=== PATIENT | female | born 1965 | race Asian ===

== ENCOUNTER 2016-09-15 00:47 | Inpatient (IN) | payer SELFPAY ==
[2016-09-15] MEDS ORDERED: ZOFRAN IV ONE ×2 (01:29→07:08)
[2016-09-15 01:58] LABS: Basophils % (Auto) 0.5 % (0.0-1.8); Eosinophils % (Auto) 0.3 % (0.0-4.3); Hematocrit 41.4 % (30.3-42.9); Hemoglobin 13.5 gm/dl (10.1-14.3); Mean Corpuscular HGB Conc 33 % (30-34); Mean Corpuscular Hemoglobin 30 pg (28-32); Mean Corpuscular Volume 93 fl (79-97); Platelet Count 201 K/mm3 (140-440); Red Blood Count 4.47 M/mm3 (3.65-5.03); Red Cell Distribution Width 14.2 % (13.2-15.2); White Blood Count 13.3 K/mm3 (4.5-11.0)
[2016-09-15 02:23] LABS: Albumin 4.2 g/dL (3.9-5); Albumin/Globulin Ratio 1.4 %; Alkaline Phosphatase 81 units/L (35-129); Blood Urea Nitrogen 10 mg/dL (7-17); Calcium 9.7 mg/dL (8.4-10.2); Carbon Dioxide 25 mmol/L (22-30); Glucose 111 mg/dL (65-100); Lipase 21 units/L (13-60); Sodium 140 mmol/L (137-145); Total Protein 7.3 g/dL (6.3-8.2)
[2016-09-15 02:28] LABS: Anion Gap 18 mmol/L
[2016-09-15 02:29] LABS: Alanine Aminotransferase 12 units/L (7-56)
[2016-09-15] MEDS ORDERED: ZOFRAN ONE ×2 (07:04→16:34)
--- NOTE | 2016-09-15 08:48 | Ultrasound Report ---
Pelvic and transvaginal sonography: History: Abdominal pain, . Findings: Uterus measures 6.2 x 2 x 3.2 cm. Endometrial thickness 18.1 mm. There is calcification noted within the endometrium. No intrauterine gestation. The cervix and vagina appears unremarkable. Right ovary 2.4 x 1.3 x 1.3 cm. No mass. Left ovary 2.7 x 1.3 x 1.6 cm. Cyst in the left ovary measures 0.7 cm. Impression: Thickened endometrium with calcification. No mass. No intrauterine gestation. Left ovarian cyst.
[2016-09-15] MEDS ORDERED: NACL ONE ×2 (10:25→11:49)
--- NOTE | 2016-09-15 10:35 | Emergency Department Report ---
ED Abdominal Pain HPI - General Chief Complaint: Abdominal Pain Stated Complaint: UPPER ABDOMINAL PAIN Time Seen by Provider: 09/15/16 09:34 Source: patient Mode of arrival: Ambulatory Limitations: No Limitations - History of Present Illness Initial Comments: Patient is a 51-year-old female with a history of breast cancer in remission for 2 years, migraines presents with one-week history of abdominal pain. Patient reports the abdominal pain is intermittent with instances of sharp pain in the upper abdominal region. Associated nausea and decreased appetite. Patient is noncompliant with breast cancer checkup. Currently has no PMD. Otherwise no headaches, chills, fever, vomiting, chest pain, shortness of breath , pelvic pain, pelvic discharge, back pain, dysuria, trauma, sick contacts, or travel MD Complaint: abdominal pain -: Gradual Severity scale (0 -10): 4 - Related Data Home Medications Medication Instructions Recorded Confirmed Last Taken No Known Home Medications [No 04/08/14 09/15/16 Unknown Reported Home Medications] Allergies Allergy/AdvReac Type Severity Reaction Status Date / Time No Known Allergies Allergy Unverified 04/08/14 16:11 ED Review of Systems ROS: Stated complaint: UPPER ABDOMINAL PAIN Other details as noted in HPI Comment: All other systems reviewed and negative ED Past Medical Hx - Past Medical History Previous Medical History?: Yes Hx of Cancer: Yes (Left Breast Cancer) Hx Headaches / Migraines: Yes (MIGRAINES) - Surgical History Hx Breast Surgery: Yes (LEFT BREAST BX 03-09-14) Additional Surgical History: port-a-cath right upper chest, - Social History Smoking Status: Current Every Day Smoker Substance Use Type: None - Medications Home Medications: Home Medications Medication Instructions Recorded Confirmed Last Taken Type No Known Home Medications [No 04/08/14 09/15/16 Unknown History Reported Home Medications] ED Physical Exam - General Limitations: No Limitations General appearance: alert, in no apparent distress - Head Head exam: Present: atraumatic, normocephalic - Eye Eye exam: Present: normal appearance - ENT ENT exam: Present: mucous membranes moist - Neck Neck exam: Present: normal inspection - Respiratory Respiratory exam: Present: normal lung sounds bilaterally. Absent: respiratory distress - Cardiovascular Cardiovascular Exam: Present: regular rate, normal rhythm. Absent: systolic murmur, diastolic murmur, rubs, gallop - GI/Abdominal GI/Abdominal exam: Present: soft, tenderness (RUQ and epigastrium), normal bowel sounds. Absent: distended, rebound, rigid - Extremities Exam Extremities exam: Present: normal inspection - Back Exam Back exam: Present: normal inspection - Neurological Exam Neurological exam: Present: alert, oriented X3 - Psychiatric Psychiatric exam: Present: normal affect, normal mood - Skin Skin exam: Present: warm, dry, intact, normal color. Absent: rash ED Course Vital Signs 09/15/16 09/15/16 09/15/16 01:15 06:23 07:00 Temperature 97.4 F L 98.2 F Pulse Rate 82 76 60 Respiratory 20 18 16 Rate Blood Pressure 144/81 141/72 Blood Pressure 144/81 112/61 [Left] O2 Sat by Pulse 100 100 100 Oximetry 09/15/16 11:10 Temperature Pulse Rate Respiratory 18 Rate Blood Pressure Blood Pressure [Left] O2 Sat by Pulse Oximetry ED Medical Decision Making - Lab Data Result diagrams: 09/15/16 01:44 09/15/16 01:44 - Medical Decision Making Dr Durham consulted, he came to the bedside and evaluated the patient Pt made NPO, zosyn ordered. pt admitted to Dr Durham Critical care attestation.: If time is entered above; I have spent that time in minutes in the direct care of this critically ill patient, excluding procedure time. ED Disposition Clinical Impression: Acute cholecystitis, Abdominal pain, Elevated serum hCG Disposition: OP ADMITTED IP TO THIS HOSP Is pt being admited?: Yes Condition: Stable
[2016-09-15] MEDS ORDERED: MORPHINE IV ONE ×2 (10:55→13:58)
[2016-09-15] MEDS ORDERED: MORPHINE ONE (10:59)
--- NOTE | 2016-09-15 12:48 | Cat Scan Report ---
CT abdomen and pelvis with contrast: Abdominal pain. Following intravenous contrast transverse images were obtained from lower chest to the ischium with coronal and sagittal 2-D reformatted images. The visualized lungs are clear. There is pericholecystic fluid. There are gallbladder calculi containing gas. The CBD is mildly patulous but no intraluminal calculus identified. The abdominal and retroperitoneal organs otherwise appear unremarkable. The abdominal aorta is normal in size and contour. The unopacified bowel and mesentery is unremarkable for any evidence of an inflammatory or obstructive process. The cecum is in the pelvis. The appendix if present is not identified. No pelvic masses. There is a minimal volume of cul-de-sac fluid. Impressions: Cholelithiasis with probable cholecystitis.
--- NOTE | 2016-09-15 13:15 | Admit Criteria Form ---
Admission Criteria Documentation: GALLBLADDER OR BILE DUCT INFLAMMATION OR STONE Clinical Indications for Admission to Inpatient Care ( Place 'X' for any and all applicable criteria): Admission is indicated for patients with ANY ONE of the following(1)(2)(3)(4)(5) : [ ]I. Acute cholecystitis as indicated by ALL of the following: [X]a) Right upper quadrant pain, mass, or tenderness [X]b) Systemic signs of inflammation indicated by ANY ONE of the following: [ ]i) Fever [ ]ii) C-reactive protein level greater than 10 mg/L (95 nmol/L) [X]iii) White blood cell count greater than 10,000/mm3 (10 x109/L) or less than 4000/mm3 (4 x109/L) [ ]II. Inpatient admission required rather than observation care (Also use Gallbladder or Bile Duct Inflammation or Stone: Observation Care as appropriate) because of ANY ONE of the following: [ ]a) Common bile duct obstruction diagnosed [ ]b) Vomiting that is severe or persistent [ ]c) Severe pain requiring acute inpatient management [ ]d) Signs of intestinal obstruction or peritonitis [A] [ ]e) Severe electrolyte abnormalities requiring inpatient care [ ]f) Absent bowel sounds with complete ileus(8) [ ]g) Hemodynamic instability [ ]h) High fever or infection requiring inpatient admission as indicated by ANY ONE of the following (9): [ ]1) Appropriate outpatient or observation care antimicrobial Treatment. unavailable, not effective, or not feasible [ ]2) Temperature greater than 104.9 degrees F (40.5 degrees C) (oral) [ ]3) Temperature greater than 103.1 degrees F (39.5 degrees C) (oral) or less than 96.8 degrees F (36 degrees C) (rectal) that does not respond to all emergency treatment measures [ ]4) Documented bacteremia [ ]i) IV fluid to replace significant ongoing losses (greater than 3 L/m2 per day) [ ]j) Percutaneous or open drainage (eg, abscess, biliary tract) procedures [ ]k) Immediate inpatient surgery [ ]l) Other condition, treatment or monitoring requiring inpatient admission [ ]III. Acute cholangitis as indicated by ALL of the following(9)(10): [ ]a) Systemic signs of inflammation indicated by ANY ONE of the following: [ ]i) Fever [ ]ii) C-reactive protein level greater than 10 mg/L (95 nmol /L) [ ]iii) White blood cell count greater than 10,000/mm3 (10 x109/L) or less than 4000/mm3 (4 x109/L) [ ]b) Evidence of common bile duct disease indicated by ANY ONE of the following: [ ]i) Total serum bilirubin level greater than or equal to 2 mg/dL (34 micromoles/L) [ ]ii) Liver function test (alkaline phosphatase (ALP), r- glutamyltransferase (GGT), aspartate aminotransferase (AST), or alanine aminotransferase (ALT)) greater than 1.5 times the upper limit of normal[B] [ ]iii) Hepatobiliary imaging showing biliary dilatation or evidence of etiology (eg, stricture, stone, previously placed stent) Extended stay beyond goal length of stay may be needed for (1)(2)): [ ]a) Bacteremia or Hemodynamic instability [ ]b) Cholecystectomy [ ]c) Other surgical procedure(24) [ ]d) Percutaneous or endoscopic ultrasound-guided cholecystostomy The original [facility] content created by [facility] [employer] has been revised. The portions of the content which have been revised are identified through the use of italic text or in bold, and [facility] has neither reviewed nor approved the modified material. All other unmodified content is copyright [facility]. Please see references footnoted in the original [facility] edition 2016
[2016-09-15] MEDS ORDERED: ZOSYN/NS 4.5GM/100ML 4.5 GM/100 ML VIAL IV ONE (13:57)
[2016-09-15 14:34] LABS: Bilirubin,Urine Negative (Negative); Blood,Urine Moderate (Negative); Ketones,Urine Negative (Negative); Leukocyte Esterase,Urine Small (Negative); Nitrite,Urine Negative (Negative); Protein,Urine <15 mg/dL mg/dL (Negative); Urobilinogen,Urine < 2.0 mg/dL (<2.0)
--- NOTE | 2016-09-15 15:21 | Ultrasound Report ---
Sonogram right upper quadrant: Findings: Normal aorta and inferior vena cava. Normal liver. No intrahepatic duct dilatation. Common bile duct diameter is 11 mm. Gallbladder wall thickness 7 mm. Multiple calculi in the gallbladder. 1.4 cm calculus in the neck of the gallbladder. Dilated pancreatic duct. Right kidney 11 x 2.9 x 4.9 cm. Cortical thickness 1cm. No mass. No hydronephrosis. Impression: Dilated common bile duct and dilated pancreatic duct with large calculus in neck of the gallbladder and calculi in the gallbladder.
[2016-09-15] MEDS ORDERED: DIPRIVAN 10 MG/ML IV ONE (16:28)
[2016-09-15] MEDS ORDERED: NEO SYNEPHRINE ONE (16:29)
[2016-09-15] MEDS ORDERED: ZEMURON IV ONE ×2 (16:29→16:31)
[2016-09-15] MEDS ORDERED: QUELICIN ONE (16:31)
[2016-09-15] MEDS ORDERED: DILAUDID ONE ×2 (16:31→18:59)
[2016-09-15] MEDS ORDERED: XYLOCAINE MPF 2% ONE (16:32)
[2016-09-15] MEDS ORDERED: BLOXIVERZ ONE (16:32)
[2016-09-15] MEDS ORDERED: ROBINUL ONE (16:32)
[2016-09-15] MEDS ORDERED: NACL 0.9% 1000 ML 1,000 ML ONE ×2 (16:35→18:42)
[2016-09-15] MEDS ORDERED: PEPCID IV ONE ×2 (16:35→16:39)
--- NOTE | 2016-09-15 16:38 | Anesthesia Consultation ---
Anesthesia Consult and Med Hx Date of service: 09/15/16 - Airway Anesthetic Teeth Evaluation: Poor ROM Head & Neck: Adequate Mental/Hyoid Distance: Adequate Mallampati Class: Class I Intubation Access Assessment: Good - Pulmonary Exam CTA: Yes - Cardiac Exam Cardiac Exam: RRR - Pre-Operative Health Status ASA Pre-Surgery Classification: ASA2 Proposed Anesthetic Plan: General - Pre-Anesthesia Comment Pre-Anesthesia Comments: multiple missing teeth, remaining teeth in poor repair. Multipe severly chipped incisors. Patient aware of high risk for tooth loss. - Pulmonary Hx Smoking: Yes (CIGARETTES 1 CIG PD X 29 YRS) Hx Sleep Apnea: No - Central Nervous System Hx Psychiatric Problems: No
--- NOTE | 2016-09-15 16:39 | Anesthesia Day of Surgery ---
Anesthesia Day of Surgery - Day of Surgery Patient Examined: Yes Patient H&P Reviewed: Yes Patient is NPO: Yes (FSP , recent nausea/vomiting.)
--- NOTE | 2016-09-15 16:39 | History and Physical Report ---
HISTORY OF PRESENT ILLNESS: This patient was seen in the Emergency Room this afternoon. She is a 51-year-old black female who came because of severe pain that she developed in the mid upper abdomen, more to the right side of one day duration, severe nausea and vomiting. She never had pain like this in the past. The patient is a known case of cancer of the breast for which she had a lumpectomy and she was on chemotherapy. This was about 3 years ago. At this time, the pain was in the epigastrium and she was evaluated by our ER physician. She was found to have stones in the gallbladder and edema with some pericholecystic fluid in the area. The patient told me that she never had these in the past. She is not allergic to any medicines. She had one child 8 years old. PHYSICAL EXAMINATION: GENERAL: A thin, slim black female. She is in very severe pain to the mid upper abdomen. HEAD AND NECK: Negative. Neck is supple. CHEST: Essentially clear. ABDOMEN: Showed severe tenderness with guarding in the mid upper abdomen, more to the right side. EXTREMITIES: Showed no significant edema. IMPRESSION: Right upper quadrant pain, nausea and vomiting. Gallbladder disease with stones with the edema appearing ____ of the breast by history. I believe this needs to be addressed surgically, but to have OB to see her because her hCG was a little bit elevated. JOB# [id number] JULIENNE/REMIGIO
[2016-09-15] MEDS ORDERED: ZOFRAN IV PRN (16:40)
[2016-09-15 16:53] LABS: Mucus,Urine FEW /HPF
[2016-09-15] MEDS ORDERED: ANCEF/STERILE WATER 2 GM/20 ML IV NR (17:00)
[2016-09-15] MEDS ORDERED: PEPCID IV NR (17:00)
[2016-09-15] MEDS ORDERED: ZOFRAN IV NR (17:00)
[2016-09-15] MEDS ORDERED: MARCAINE 0.5% 30 ML INFILTRATI ONE (17:02)
[2016-09-15] MEDS ORDERED: NACL 0.9% IR ONE ×2 (17:28→17:29)
[2016-09-15] MEDS ORDERED: MARCAINE 0.5% INFILTRATI ONE ×2 (17:29)
[2016-09-15] MEDS: DILAUDID IV PRN ×2 (18:56→19:15)
[2016-09-15] MEDS ORDERED: D5W/0.45% NACL/KCL 20 MEQ 20 MEQ/1,000 ML BAG IV SCH (19:00)
--- NOTE | 2016-09-15 19:03 | Post Anesthesia Evaluation ---
- Post Anesthesia Evaluation Patient Participated: Yes Airway Patent: Yes Stable Respiratory Function: Yes Temp > 96.8F: Yes Pain Manageable: Yes Adequeate Hydration: Yes Anesthesia Complications: No Block Receding Appropriately: Not Applicable
[2016-09-15] MEDS: ANCEF/NS 1 GM/50 ML 1 GM/50 ML BAG IV SCH (22:33)
[2016-09-16] MEDS ORDERED: DILAUDID IV PRN (01:49)
[2016-09-16] MEDS: ANCEF/NS 1 GM/50 ML 1 GM/50 ML BAG IV SCH (06:15)
--- NOTE | 2016-09-16 06:33 | Operative Report ---
PREOPERATIVE DIAGNOSIS: Acute cholecystitis. POSTOPERATIVE DIAGNOSES: 1. Acute cholecystitis. 2. Cancer of the breast, status post lumpectomy, left breast. 3. Insertion of Infusaport. SURGERY: Laparoscopic cholecystectomy. ANESTHESIA: General. BLOOD LOSS: Minimal. FINDINGS: The patient had very sick looking gallbladder, has very thick wall, a good 6 to 7 mm and it contained multiple stones and sludge. The cystic duct is about 1.5 to 2 mm. The same thing with the cystic artery. I was able to isolate bowel both of these structures and endoclipped x 3 and transected. I was able to remove the gallbladder in toto using the electrocautery hook for that purpose. INDICATION FOR SURGERY: As above. The patient apparently was seen by doctor about 6 months ago because of the same problems. She was asked to have surgical intervention to have gallbladder removed. Apparently for some reasons, she did not do that, so she came today to our Emergency Room. She had some elevation of her white count. Her liver profile was normal. Examination showed a short as above, severe tenderness in the right upper quadrant. ANESTHESIA: General. DESCRIPTION OF PROCEDURE: With the patient in supine position, prepped and draped in the usual fashion. I made a small incision in the right mid upper abdomen. With the Veress needle, I was able to insufflate the abdominal cavity up to pressure of 15. Then, #5 trocar following which another trocar #5 was inserted in the right lateral aspect of the abdomen superiorly, then in the mid epigastrium another 5 in the infraumbilical area. The gallbladder was very inflamed with loss of adhesions to the omentum, these were lysed slowly. I was able to isolate it and thus with the grasper, I was able to grasp it from its fundus and infundibular area. The area of the cystic duct was very edematous. Slowly, I was able to dissect it completely. The cystic duct and cystic artery were then identified. These were endoclipped x 4, transected, and the gallbladder was removed in toto using electrocautery with the use of the hook. I was very satisfied to had good hemostasis using electrocautery for the bed area, then the gallbladder was removed via EndoCatch in the usual fashion. The area with then irrigated with sterile normal saline and I left a drain there because of the edema through one of the trocars #5 and then the abdominal cavity was deflated. Closing of the fascia with the use of 0 Vicryl and skin with 4-0 Vicryl and the bandages. The patient was then transferred to the recovery room in good condition. I went out and talked to the family that the patient was very sick and we need to keep her a good 1 to 2 days at least for IV antibiotics. We will keep her on clear liquids and we will start her on antibiotics as well. JOB# [id number] JULIENNE/REMIGIO
[2016-09-16 07:40] VITALS: BP 109/70
[2016-09-16] MEDS ORDERED: TYLENOL PO PRN (08:11)
[2016-09-16 09:44] LABS: Hematocrit 36.9 % (30.3-42.9); Hemoglobin 12.1 gm/dl (10.1-14.3); Mean Corpuscular HGB Conc 33 % (30-34); Mean Corpuscular Hemoglobin 30 pg (28-32); Mean Corpuscular Volume 92 fl (79-97); Platelet Count 170 K/mm3 (140-440); Red Blood Count 4.01 M/mm3 (3.65-5.03); Red Cell Distribution Width 14.5 % (13.2-15.2); White Blood Count 13.7 K/mm3 (4.5-11.0)
[2016-09-16 10:05] LABS: Alanine Aminotransferase 41 units/L (7-56); Albumin 3.4 g/dL (3.9-5); Albumin/Globulin Ratio 1.4 %; Alkaline Phosphatase 64 units/L (35-129); Total Protein 5.9 g/dL (6.3-8.2)
[2016-09-16 10:23] LABS: Bilirubin,Direct < 0.2 mg/dL (0-0.2); Bilirubin,Indirect 0.1 mg/dL
[2016-09-16 11:44] LABS: Anisocytosis 1+; Basophils % (Manual) 0 % (0.0-1.8); Blastocytes % (Manual) 0 %; Diff Status Complete; Elliptocytes Few; Eosinophils % (Manual) 0 % (0.0-4.3); Large Platelets Few; Ovalocytes 1+
--- NOTE | 2016-09-18 07:56 | Discharge Summary ---
FINAL DIAGNOSES: 1. Acute cholecystitis. 2. Intrauterine fibroid. 3. Elevated hCG. HISTORY OF PRESENT ILLNESS: This patient was seen in the ER on the day of her admission. She came for severe pain in the right upper quadrant with severe nausea and vomiting. She was seen by a surgeon in the past and she was told that she needs her gallbladder taken out, but for some reason, she did not do that. The pain at this time is very bad. She feels severely nauseated. She ____ occasions. Upon further asking her, she did have pain in the last week or two. The patient's CT scan shows edematous gallbladder with multiple stones. The common bile duct was not dilated. The sonogram showed the same with intrauterine ? fibroid. The hCG was elevated ____. PHYSICAL EXAMINATION: GENERAL: A thin slim black female, she was in severe pain to the mid epigastrium. HEAD AND NECK: Negative. BREASTS: Showed lumpectomy on the left side due to cancer ____. CHEST: Clear. HEART: Sound normal. ABDOMEN: Showed severe tenderness in the right mid/upper abdomen. EXTREMITIES: Showed no significant edema. HOSPITAL COURSE: The patient was thus taken to the operating room, we did have Dr. ____. She told me that I may go ahead and do the operation. So, she was admitted ____ she underwent laparoscopic cholecystectomy ____ today. Lab exams were negative. She was doing fine. She was moving around outside her room ____. She was given clear liquids, and I believe at this point she may ____. No driving. The patient also was instructed to be seen by [employer] barista for the intrauterine fibroid about 5-6 cm. Diet, low fat. JOB# [id number] JULIENNE/REMIGIO
== END 2016-09-16 15:15 | disposition home or self-care (01) | DRG 419 ==
LOC: ED 00:47 → OR 17:00 → 2B-SURG 17:01
PROVIDERS: ADMIT Surgery; ATTEND Surgery
PROC: 0FT44ZZ Resection of Gallbladder, Percutaneous Endoscopic Approach (ICD-10-PCS; principal; 2016-09-15)
DX: K80.00 Calculus of gallbladder with acute cholecystitis without obstruction (principal); G43.909 Migraine, unspecified, not intractable, without status migrainosus; F17.200 Nicotine dependence, unspecified, uncomplicated; C50.912 Malignant neoplasm of unspecified site of left female breast; Z85.3 Personal history of malignant neoplasm of breast
CPT/HCPCS: 36415; 74177; 76705; 76801; 76817; 80053; 80074; 81001; 83690; 84702; 84703; 85007; 85025; 88304; A4217; J0330; J0690; J1170; J2270; J2370; J2405; J2543; J2704; J2710; J7030; Q9967